=== PATIENT | male | born 1980 | race Caucasian/White ===

== ENCOUNTER 2021-10-31 14:55 | Outpatient (RCR) | payer MEDICARE, MEDICAID, SELFPAY | END 2022-09-06 23:59 | disposition home or self-care (01) | PROVIDERS: PCP Physician Assistant Medical; Visit Provider Internal Medicine | DX: S14.109S Unspecified injury at unspecified level of cervical spinal cord, sequela (principal); Z51.89 Encounter for other specified aftercare | CPT/HCPCS: 97165 ==